=== PATIENT | female | born 1995 | race Caucasian/White ===

== ENCOUNTER 2016-11-21 20:37 | Emergency (ER) | payer OTHER | END 2016-11-22 01:07 | disposition home or self-care (01) | LOC: ER 20:37 | DX: O99.89 Other specified diseases and conditions complicating pregnancy, childbirth and the puerperium (principal); R10.84 Generalized abdominal pain; R10.2 Pelvic and perineal pain; M54.5 Low back pain; Z3A.01 Less than 8 weeks gestation of pregnancy | CPT/HCPCS: 36415; 96360; 96361 ==

== ENCOUNTER 2017-01-07 21:11 | Emergency (ER) | payer OTHER | END 2017-01-07 21:21 | disposition home or self-care (01) | LOC: ER 21:11 | DX: O99.89 Other specified diseases and conditions complicating pregnancy, childbirth and the puerperium (principal); H11.32 Conjunctival hemorrhage, left eye; O99.281 Endocrine, nutritional and metabolic diseases complicating pregnancy, first trimester; E04.9 Nontoxic goiter, unspecified; Z3A.13 13 weeks gestation of pregnancy ==